=== PATIENT | female | born 1965 | race Caucasian/White ===

== ENCOUNTER 2018-10-31 21:47 | Emergency (ER) | payer OTHER ==
[2018-10-31 21:52] VITALS: BP 138/79; PULSE 56; TEMP 97.7; O2SAT 99
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
[2018-10-31 23:43] VITALS: RESP 20
== END 2018-10-31 23:00 | disposition home or self-care (01) ==
LOC: C.ER 21:47 → EDSEX 21:47 → C.ER 23:00
DX: S13.9XXA Sprain of joints and ligaments of unspecified parts of neck, initial encounter (principal); V89.2XXA Person injured in unspecified motor-vehicle accident, traffic, initial encounter